=== PATIENT | female | born 1950 | race Caucasian/White ===

== ENCOUNTER 2016-11-22 14:34 | Emergency (ER) | payer OTHER ==
[2016-11-22 14:39] VITALS: BP 155/78; PULSE 66; RESP 16; TEMP 97.9; O2SAT 95
--- NOTE | 2016-11-22 14:53 | EDPHY ---
H & P Stated Complaint: Squirrel bite or scratch to righ index finger. Time Seen by Provider: 11/22/16 14:42 HPI/ROS: Chief complaint: Squirrel bite or scratch History of present illness: This is a 65-year-old female who presents to the emergency department for a squirrel bite or scratch to her right pointer finger. Patient was placing food on a tree for a squirrel to get. The squirrel apparently ran down to get the food and attempted to grab the food while it was still in the patient's hand. The squirrel either bit or scratched the tip of her finger. She does state the wound bled. She immediately went inside and cleaned the wound with soap and water. Her tetanus is up-to-date. She is concerned about the potential for rabies. She denies other injuries. She denies abnormal coolness or paresthesias in the finger. She is still moving the finger well. - Personal History Current Tetanus Diphtheria and Acellular Pertussis (TDAP): Unsure Tetanus Vaccine Date: LESS THAN 10 YRS - Medical/Surgical History Hx Asthma: No Hx Chronic Respiratory Disease: No Hx Diabetes: No Hx Cardiac Disease: Yes Hx Renal Disease: No Hx Cirrhosis: No Hx Alcoholism: No Hx HIV/AIDS: No Hx Splenectomy or Spleen Trauma: No Other PMH: PVC's. - Social History Smoking Status: Never smoked - Physical Exam Exam: General: Alert, nontoxic Skin: 2 small abrasions to the tip of the right pointer finger. Inspection does not reveal foreign bodies. Musculoskeletal: She is flexing and extending the right pointer finger in the DIPJ, PIP and MCP joint well. Vascular: Capillary refill brisk in the right pointer finger. Neurologic: Sensation intact using light touch and two-point discrimination in the right pointer finger. Constitutional: Initial Vital Signs Temperature (C) 36.6 C 11/22/16 14:35 Heart Rate 66 11/22/16 14:35 Respiratory Rate 16 11/22/16 14:35 Blood Pressure 155/78 H 11/22/16 14:35 O2 Sat (%) 95 11/22/16 14:35 O2 Delivery Mode Room Air Allergies/Adverse Reactions: No Known Allergies Allergy (Unverified 05/25/12 10:26) Home Medications: Medication Instructions Recorded Atorvastatin Calcium [Lipitor 10 10 mg PO DAILY 05/25/12 mg (RX)] HYDROcodone/HOMATROPINE HYCODA 1 tsp PO Q4-6PRN PRN #120 ml 05/25/12 [Hycodan Syrup (RX)] Omeprazole Magnesium [Prilosec Otc] 20 mg PO 05/25/12 Amoxicillin/Clavulanate Pot 875 mg PO BID 5 Days 11/22/16 [Augmentin 875 MG TAB (*)] CLONAZEPAM 11/22/16 HCTZ (*) 11/22/16 Medical Decision Making ED Course/Re-evaluation: Patient seen under the supervision of my secondary supervising physician Dr. Gerardo Hatfield. Patient presents to the emergency department for evaluation of either a squirrel bite or scratch. Her finger is neurovascularly intact. She has good musculoskeletal control. These are very superficial wounds that were promptly cleaned. I do not believe rabies prophylaxis is warranted at this time at this was a squirrel acting appropriately. Given these are very superficial wounds I have discussed with her I am not sure the risk of antibiotic therapy outweighs the benefits for prophylaxis against infection. I have discussed home care including wound care and topical antibiotic cream. However she is given a prescription for Augmentin and I have discussed if she develops any signs of infection she should start this immediately and immediately follow-up with her primary care doctor or an ER for recheck. She is asked to still follow up with a primary care doctor in 2-3 days for recheck of the wound. Return precautions are given. Patient voiced understanding and agreement with plan. Differential Diagnosis: Included but not limited to abrasion, laceration, foreign body contamination Departure - Departure Disposition: Home, Routine, Self-Care Clinical Impression: Bitten by squirrel Qualifiers: Encounter type: initial encounter Qualified Code(s): W53.21XA - Bitten by squirrel, initial encounter Condition: Good Instructions: Animal Bite (ED), Acute Wounds (ED) Additional Instructions: Follow-up with your primary care doctor in 2-3 days for recheck Keep wound clean with soap and water and apply antibacterial ointment 3 times daily If symptoms worsen or new symptoms develop including increasing pain, development of redness, swelling, pustular discharge from wound, fever or other signs or symptoms please return to the emergency room or see your doctor immediately for recheck Referrals: Nina Prajapati MD [Primary Care Provider] - As per Instructions Prescriptions: Amoxicillin/Clavulanate Pot [Augmentin 875 MG TAB (*)] 875 mg PO BID 5 Days
== END 2016-11-22 15:01 | disposition home or self-care (01) ==
DX: S61.250A Open bite of right index finger without damage to nail, initial encounter (principal); W53.21XA Bitten by squirrel, initial encounter

== ENCOUNTER 2017-06-23 09:23 | Day surgery (SDC) | payer OTHER ==
[2017-06-23] MEDS ORDERED: LR 1,000 ML IV ONE (09:50)
[2017-06-23 10:03] VITALS: PULSE 61
[2017-06-23] MEDS ORDERED: LIDOCAINE 2% 5 ML SDV ONE (10:18)
[2017-06-23] MEDS ORDERED: PROPOFOL/EMULSION 500 MG/50 ML BOTTLE IV ONE (10:18)
--- NOTE | 2017-06-23 10:23 | PDGENHP ---
History and Physical - Chief Complaint dysphagia - History of Present Illness 66 s/p Dagoberto, with solid/liquid dysphagia History Information - Allergies/Home Medication List Allergies/Adverse Reactions: No Known Allergies Allergy (Unverified 05/25/12 10:26) Home Medications: Atorvastatin Calcium [Lipitor 10 mg (RX)] 10 mg PO DAILY 05/25/12 [Last Taken Unknown] Omeprazole Magnesium [Prilosec Otc] 20 mg PO 05/25/12 [Last Taken Unknown] CLONAZEPAM 11/22/16 [Last Taken Unknown] HCTZ (*) 11/22/16 [Last Taken Unknown] Albuterol Hfa Anes Only 06/20/17 [Last Taken Unknown] Aspirin 06/20/17 [Last Taken Unknown] Bystolic 06/20/17 [Last Taken Unknown] Herbals/Supplements -Info Only 06/20/17 [Last Taken Unknown] Hydrocodone-Acetamin 5-325 mg 06/20/17 [Last Taken Unknown] Ventolin Hfa Inhaler 06/20/17 [Last Taken Unknown] I have personally reviewed and updated: family history, medical history, social history, surgical history - Past Medical History CHF, GERD - Surgical History Additional surgical history: dagoberto - Family History Negative for: cancer - Social History Smoking Status: Never smoked Alcohol Use: Rarely Drug Use: None Review of Systems Review of Systems: ROS: 10pt was reviewed & negative except for what was stated in HPI & below Physical Exam Physical Exam: Temp Pulse Resp BP Pulse Ox 61 16 133/77 H 95 06/23/17 09:56 06/23/17 09:56 06/23/17 09:56 06/23/17 09:56 Constitutional: no apparent distress Eyes: PERRL Ears, Nose, Mouth, Throat: moist mucous membranes Cardiovascular: regular rate and rhythym Respiratory: no respiratory distress Gastrointestinal: normoactive bowel sounds Genitourinary: no bladder fullness Skin: warm Musculoskeletal: full muscle strength Psychiatric: interacting appropriately Assessment & Plan Assessment: dysphagia Plan: egd with dilation
--- NOTE | 2017-06-23 10:38 | POSTANESTH ---
Post Anesthetic Evaluation Cardiovascular Status: Normal, Stable Respiratory Status: Normal, Stable Pain Control: Adequate, Prn Tx Ordered Nausea/Vomiting Control: Adequate, Prn Tx Ordered Complications Possibly Related to Anesthesia: None Noted
--- NOTE | 2017-06-23 10:38 | GIREPORT ---
[facility] Surgical Services - Endoscopy Department Patient Name: Patricia Domingo Procedure Date: 06/23/2017 10:12 AM Patient Type: Outpatient Attending / ER Physician: Anabel Hutchinson MD Procedure: Upper GI endoscopy Indications: Epigastric abdominal pain, Dysphagia, Heartburn Providers: Anabel Hutchinson MD Medicines: Sedation Administered by the Endoscopist Complications: No immediate complications. Description of Procedure: After obtaining informed consent, the endoscope was passed under direct vision. Throughout the procedure, the patient's blood pressure, pulse, and oxygen saturations were monitored continuously. The Endoscope was intro duced through the mouth, and advanced to the third part of duodenum. The uppe r GI endoscopy was accomplished without difficulty. The patient tolerated th e procedure well. Findings: The examined esophagus was normal. Biopsies were taken with a cold for eps for histology. A guidewire was placed and the scope was withdrawn. Dila tion was performed with a Savary dilator with no resistance at 54 Fr. A small hiatal hernia was present. Localized mild inflammation characterized by congestion (edema) and esperanza thema was found in the gastric antrum. Biopsies were taken with a cold force s for histology. Evidence of a Meeta fundoplication was found in the cardia. The wrap appeared loose. This was traversed. The examined duodenum was normal. Estimated Blood Loss: Estimated blood loss: none. Post Op Diagnosis: - Normal esophagus. Biopsied. Dilated. - Small hiatal hernia. - Gastritis. Biopsied. - A Meeta fundoplication was found. The wrap appears loose. - Normal examined duodenum. Recommendation: - Written discharge instructions were provided to the patient. - The signs and symptoms of potential delayed complications were discus sed with the patient. - Patient has a contact number available for emergencies. - Return to normal activities tomorrow. - Resume previous diet. - Continue present medications. - Do an upper GI series, to evlaute Meeta further. - Could consider surgery referral to redo Meeta, pending response to dilation and results of UGI. Attending Participation: I personally performed the entire procedure. Anabel Hutchinson MD Anabel Hutchinson MD 06/23/2017 10:38:24 AM This report has been signed electronicallyAnabel Hutchinson MD Number of Addenda: 0 Note Initiated On: 06/23/2017 10:12 AM [email or web address]
[2017-06-23] MEDS ORDERED: ONDANSETRON 4 MG/2 ML VIAL IVP PRN (10:39)
[2017-06-23] MEDS ORDERED: NALOXONE HCL 0.4 MG/ML INJ IVP PRN (10:39)
--- NOTE | 2017-06-23 10:39 | PDANEPAE ---
ANE History of Present Illness dysphagia ANE Past Medical History - Cardiovascular History Hx Hypertension: Yes Hx Arrhythmias: Yes Hx Chest Pain: No Hx Coronary Artery / Peripheral Vascular Disease: No Hx CHF / Valvular Disease: No Hx Palpitations: No Cardiovascular History Comment: PVCs - Pulmonary History Hx COPD: No Hx Asthma/Reactive Airway Disease: Yes Hx Recent Upper Respiratory Infection: No Hx Oxygen in Use at Home: No Hx Sleep Apnea: Yes Sleep Apnea Screening Result - Last Documented: Positive Pulmonary History Comment: ASTHMA - NEBULIZER/INHALERS. RECENT CHEST/SINUS CONGESTION TXD W/Z-TRINO COMPLETED 06/19/17 - Neurologic History Hx Cerebrovascular Accident: No Hx Seizures: No Hx Dementia: No - Endocrine History Hx Diabetes: Yes Endocrine History Comment: THYROID NODULES - Renal History Hx Renal Disorders: No Renal History Comment: OCCAS UTI - Liver History Hx Hepatic Disorders: No - Neurological & Psychiatric Hx Hx Neurological and Psychiatric Disorders: No - Cancer History Hx Cancer: No - Congenital Disorder History Hx Congenital Disorders: No - GI History Hx Gastrointestinal Disorders: Yes Gastrointestinal History Comment: GERD. HIATAL HERNIA - Other Health History Other Health History: NEG - Chronic Pain History Chronic Pain: Yes (FIBROMYALGIA & CHRONIC FATIGUE) - Surgical History Prior Surgeries: SANDIE FUNDOPLICATION. ACDF C3-C6. ACDF C4-C5. LEONOR SHOULDER SCOPE ANE Review of Systems Review of Systems: - Exercise capacity Exercise capacity: >=4 METS METS (RN): 4 METS - Systems Gastrointestinal: Reports: abdominal pain ANE Patient History - Allergies Allergies/Adverse Reactions: No Known Allergies Allergy (Unverified 05/25/12 10:26) - Home Medications Home Medications: Atorvastatin Calcium [Lipitor 10 mg (RX)] 10 mg PO DAILY 05/25/12 [Last Taken Unknown] Omeprazole Magnesium [Prilosec Otc] 20 mg PO 05/25/12 [Last Taken Unknown] CLONAZEPAM 11/22/16 [Last Taken Unknown] HCTZ (*) 11/22/16 [Last Taken Unknown] Albuterol Hfa Anes Only 06/20/17 [Last Taken Unknown] Aspirin 06/20/17 [Last Taken Unknown] Bystolic 06/20/17 [Last Taken Unknown] Herbals/Supplements -Info Only 06/20/17 [Last Taken Unknown] Hydrocodone-Acetamin 5-325 mg 06/20/17 [Last Taken Unknown] Ventolin Hfa Inhaler 06/20/17 [Last Taken Unknown] - NPO status NPO Status: no food or drink >8 hours NPO Since - Liquids (Date): 06/22/17 NPO Since - Liquids (Time): 23:00 NPO Since - Solids (Date): 06/22/17 NPO Since - Solids (Time): 21:30 - Smoking Hx Smoking Status: Never smoked - Alcohol Use Alcohol Use: Rarely - Family Anes Hx Family Anes Hx: none Family Hx Anesthesia Complications: NONE ANE Labs/Vital Signs - Vital Signs Blood Pressure: 133/77 Heart Rate: 61 Respiratory Rate: 16 O2 Sat (%): 95 Height: 170.18 cm Weight: 65.771 kg ANE Physical Exam - Airway Neck exam: FROM, spinal fusion Mallampati Score: Class 2 - Pulmonary Pulmonary: no respiratory distress - Cardiovascular Cardiovascular: regular rate and rhythym - ASA Status ASA Status: II ANE Anesthesia Plan Anesthesia Plan: GA with mask, MAC
--- NOTE | 2017-06-23 10:45 | PDANEPAE ---
ANE History of Present Illness DYSPHAGIA ANE Past Medical History - Cardiovascular History Hx Hypertension: Yes Hx Arrhythmias: Yes Hx Chest Pain: No Hx Coronary Artery / Peripheral Vascular Disease: No Hx CHF / Valvular Disease: No Hx Palpitations: No Cardiovascular History Comment: PVCs - Pulmonary History Hx COPD: Yes Hx Asthma/Reactive Airway Disease: Yes Hx Recent Upper Respiratory Infection: No Hx Oxygen in Use at Home: No Hx Sleep Apnea: Yes Sleep Apnea Screening Result - Last Documented: Positive Pulmonary History Comment: ASTHMA - NEBULIZER/INHALERS. RECENT CHEST/SINUS CONGESTION TXD W/Z-TRINO COMPLETED 06/19/17 - Neurologic History Hx Cerebrovascular Accident: No Hx Seizures: No Hx Dementia: No - Endocrine History Hx Diabetes: Yes Endocrine History Comment: THYROID NODULES - Renal History Hx Renal Disorders: No Renal History Comment: OCCAS UTI - Liver History Hx Hepatic Disorders: No - Neurological & Psychiatric Hx Hx Neurological and Psychiatric Disorders: No - Cancer History Hx Cancer: No - Congenital Disorder History Hx Congenital Disorders: No - GI History Hx Gastrointestinal Disorders: Yes Gastrointestinal History Comment: GERD. HIATAL HERNIA - Other Health History Other Health History: NEG - Chronic Pain History Chronic Pain: Yes (FIBROMYALGIA & CHRONIC FATIGUE) - Surgical History Prior Surgeries: SANDIE FUNDOPLICATION. ACDF C3-C6. ACDF C4-C5. LEONOR SHOULDER SCOPE ANE Review of Systems Review of Systems: - Exercise capacity METS (RN): 4 METS ANE Patient History - Allergies Allergies/Adverse Reactions: No Known Allergies Allergy (Unverified 05/25/12 10:26) - Home Medications Home Medications: Atorvastatin Calcium [Lipitor 10 mg (RX)] 10 mg PO DAILY 05/25/12 [Last Taken Unknown] Omeprazole Magnesium [Prilosec Otc] 20 mg PO 05/25/12 [Last Taken Unknown] CLONAZEPAM 11/22/16 [Last Taken Unknown] HCTZ (*) 11/22/16 [Last Taken Unknown] Albuterol Hfa Anes Only 06/20/17 [Last Taken Unknown] Aspirin 06/20/17 [Last Taken Unknown] Bystolic 06/20/17 [Last Taken Unknown] Herbals/Supplements -Info Only 06/20/17 [Last Taken Unknown] Hydrocodone-Acetamin 5-325 mg 06/20/17 [Last Taken Unknown] Ventolin Hfa Inhaler 06/20/17 [Last Taken Unknown] - NPO status NPO Since - Liquids (Date): 06/22/17 NPO Since - Liquids (Time): 23:00 NPO Since - Solids (Date): 06/22/17 NPO Since - Solids (Time): 21:30 - Smoking Hx Smoking Status: Never smoked - Alcohol Use Alcohol Use: Rarely - Family Anes Hx Family Hx Anesthesia Complications: NONE ANE Labs/Vital Signs - Vital Signs Blood Pressure: 133/77 Heart Rate: 61 Respiratory Rate: 16 O2 Sat (%): 95 Height: 170.18 cm Weight: 65.771 kg
--- NOTE | 2017-06-23 11:08 | PDANEPAE ---
ANE History of Present Illness dysphagia ANE Past Medical History - Cardiovascular History Hx Hypertension: Yes Hx Arrhythmias: Yes Hx Chest Pain: No Hx Coronary Artery / Peripheral Vascular Disease: No Hx CHF / Valvular Disease: No Hx Palpitations: No Cardiovascular History Comment: PVCs - Pulmonary History Hx COPD: No Hx Asthma/Reactive Airway Disease: Yes Hx Recent Upper Respiratory Infection: No Hx Oxygen in Use at Home: No Hx Sleep Apnea: Yes Sleep Apnea Screening Result - Last Documented: Positive Pulmonary History Comment: ASTHMA - NEBULIZER/INHALERS. RECENT CHEST/SINUS CONGESTION TXD W/Z-TRINO COMPLETED 06/19/17 - Neurologic History Hx Cerebrovascular Accident: No Hx Seizures: No Hx Dementia: No - Endocrine History Hx Diabetes: Yes Endocrine History Comment: THYROID NODULES - Renal History Hx Renal Disorders: No Renal History Comment: OCCAS UTI - Liver History Hx Hepatic Disorders: No - Neurological & Psychiatric Hx Hx Neurological and Psychiatric Disorders: No - Cancer History Hx Cancer: No - Congenital Disorder History Hx Congenital Disorders: No - GI History GERD: no Hx Gastrointestinal Disorders: Yes Gastrointestinal History Comment: GERD. HIATAL HERNIA - Other Health History Other Health History: NEG - Chronic Pain History Chronic Pain: Yes (FIBROMYALGIA & CHRONIC FATIGUE) - Surgical History Prior Surgeries: SANDIE FUNDOPLICATION. ACDF C3-C6. ACDF C4-C5. LEONOR SHOULDER SCOPE ANE Review of Systems Review of systems is: negative Review of Systems: - Exercise capacity Exercise capacity: >=4 METS METS (RN): 4 METS ANE Patient History - Allergies Allergies/Adverse Reactions: No Known Allergies Allergy (Unverified 05/25/12 10:26) - Home Medications Home Medications: Atorvastatin Calcium [Lipitor 10 mg (RX)] 10 mg PO DAILY 05/25/12 [Last Taken Unknown] Omeprazole Magnesium [Prilosec Otc] 20 mg PO 05/25/12 [Last Taken Unknown] CLONAZEPAM 11/22/16 [Last Taken Unknown] HCTZ (*) 11/22/16 [Last Taken Unknown] Albuterol Hfa Anes Only 06/20/17 [Last Taken Unknown] Aspirin 06/20/17 [Last Taken Unknown] Bystolic 06/20/17 [Last Taken Unknown] Herbals/Supplements -Info Only 06/20/17 [Last Taken Unknown] Hydrocodone-Acetamin 5-325 mg 06/20/17 [Last Taken Unknown] Ventolin Hfa Inhaler 06/20/17 [Last Taken Unknown] - NPO status NPO Status: no food or drink >8 hours NPO Since - Liquids (Date): 06/22/17 NPO Since - Liquids (Time): 23:00 NPO Since - Solids (Date): 06/22/17 NPO Since - Solids (Time): 21:30 - Anes Hx Anes Hx: no prior problems - Smoking Hx Smoking Status: Never smoked - Alcohol Use Alcohol Use: Rarely - Family Anes Hx Family Hx Anesthesia Complications: NONE ANE Labs/Vital Signs - Vital Signs Vital Signs: reviewed preoperatively; see RN documention for details Blood Pressure: 133/77 Heart Rate: 61 Respiratory Rate: 16 O2 Sat (%): 95 Height: 170.18 cm Weight: 65.771 kg ANE Physical Exam - Airway Neck exam: FROM, spinal fusion Mallampati Score: Class 1 - Pulmonary Pulmonary: no respiratory distress - Cardiovascular Cardiovascular: regular rate and rhythym - ASA Status ASA Status: II ANE Anesthesia Plan Anesthesia Plan: GA with mask, MAC
[2017-06-23 11:14] VITALS: TEMP 97.7
[2017-06-23 12:03] VITALS: BP 133/77; RESP 16; O2SAT 95
== END 2017-06-23 11:55 | disposition home or self-care (01) ==
LOC: FSGY 09:23
PROVIDERS: ATTEND Internal Medicine Gastroenterology
DX: K44.9 Diaphragmatic hernia without obstruction or gangrene (principal); K29.70 Gastritis, unspecified, without bleeding; R13.10 Dysphagia, unspecified; R10.13 Epigastric pain; K21.9 Gastro-esophageal reflux disease without esophagitis
CPT/HCPCS: J2704

== ENCOUNTER → 2017-07-07 | Outpatient (CLI) | payer OTHER | LOC: FIMAGING 09:32 | PROVIDERS: ATTEND Internal Medicine Gastroenterology | DX: K44.9 Diaphragmatic hernia without obstruction or gangrene (principal); K21.9 Gastro-esophageal reflux disease without esophagitis ==

== ENCOUNTER → 2017-09-27 | Outpatient (CLI) | payer OTHER | LOC: FIMAGING 14:09 | PROVIDERS: ATTEND Physician Assistant | DX: J98.09 Other diseases of bronchus, not elsewhere classified (principal); I51.7 Cardiomegaly ==

== ENCOUNTER → 2018-05-05 | Outpatient (CLI) | payer OTHER | LOC: FIMAGING 14:03 | PROVIDERS: ATTEND Family Medicine | DX: Z12.31 Encounter for screening mammogram for malignant neoplasm of breast (principal) ==

== ENCOUNTER → 2018-05-25 | Outpatient (CLI) | payer OTHER | LOC: FIMAGING 11:41 | PROVIDERS: ATTEND Family Medicine | DX: R92.8 Other abnormal and inconclusive findings on diagnostic imaging of breast (principal) ==